=== PATIENT | female | born 1960 | race Caucasian/White ===

== ENCOUNTER 2016-09-04 12:58 | Emergency (ER) | payer BC, OTHER ==
[~2016-09-04 12:58] MED LIST: AMITRIPTYLINE25 M1 PO; AZU500 PO; CATAPRES0.1 MG PO; CIPRO500 MG PO; CLINDAMYCIN300 M1 PO; COLACE100 MG PO; FLA500 PO; KEPPRA1000 M1 PO; LAC PO; LAC30L PO; LEXAPRO10 MG PO; MAC100 PO; METHOCARBAMOL500 MG PO; METOPROLOL TART25 M1 PO; NOR10T PO; OXYCONTIN10 MG; OXYCONTIN30 M1; PERCOCET1 TA2 PO; PHENERGAN25 M2 PO; PHENERGAN25 MG RC; PRE125 PO; PRE3 PO; PREMARIN0.3 MG PO; PRI20 PO; SEN PO; ZANAFLEX4 MG PO; ZESTRIL5 MG PO; ZOFRAN ODT4 MG SL
[2016-09-04 14:15] LABS: BASOPHIL % 0.2 % (0-2); PLATELET COUNT 287 x10^3mcL (130-400)
[2016-09-04 14:20] LABS: RED CELL DISTRIBUTION WIDTH 14.6 % (11.5-14.5)
[2016-09-04 14:46] LABS: CALCIUM 9.8 mg/dL (8.5-10.1); CARBON DIOXIDE 22.9 mmol/L (21-32); CREATININE SERUM 1.1 mg/dL (0.6-1.0); POTASSIUM SERUM 3.2 mmol/L (3.5-5.1)
[2016-09-04 14:51] LABS: ALBUMIN 4.5 g/dL (3.4-5.0); BILIRUBIN TOTAL 0.8 mg/dL (0.20-1.00); MAGNESIUM 1.8 mg/dL (1.8-2.4); TOTAL PROTEIN, SERUM 7.6 g/dL (6.4-8.2)
[2016-09-04 17:02] VITALS: BP 148/107
== END 2016-09-04 17:02 | disposition home or self-care (01) ==
LOC: ED 12:58
PROVIDERS: Emergency Medicine
DX: G89.29 Other chronic pain (principal); M54.9 Dorsalgia, unspecified; R11.10 Vomiting, unspecified; I10 Essential (primary) hypertension; M41.9 Scoliosis, unspecified; Z88.5 Allergy status to narcotic agent
CPT/HCPCS: J1200; J1885; J2060; J2270; J2405; J3490; J7030; Q0092

== ENCOUNTER 2016-09-29 00:26 | Inpatient (IN) | payer BC, OTHER ==
[2016-09-29] VITALS (7 sets, daily range): BP systolic 75–198; BP diastolic 43–116
[~2016-09-29] VITALS: Ht 177.8 cm; Wt 54.4 kg
[2016-09-29 02:14] LABS: PLATELET COUNT 348 x10^3mcL (130-400); RED CELL DISTRIBUTION WIDTH 13.4 % (11.5-14.5)
[2016-09-29 02:38] LABS: BILIRUBIN TOTAL 0.79 mg/dL (0.20-1.00); CALCIUM 10.4 mg/dL (8.5-10.1); CARBON DIOXIDE 18.1 mmol/L (21-32); CREATININE SERUM 1.2 mg/dL (0.6-1.0)
[2016-09-29 02:40] LABS: ALBUMIN 5.1 g/dL (3.4-5.0); TOTAL PROTEIN, SERUM 9.1 g/dL (6.4-8.2)
[2016-09-29 02:41] LABS: POTASSIUM SERUM 2.6 mmol/L (3.5-5.1)
[2016-09-29] MEDS ORDERED: ZANAFLEX CAPSULE4 MG PO (04:13)
[2016-09-29] MEDS ORDERED: NUCYNTA100 M1 PO (04:13)
[2016-09-29] MEDS ORDERED: TIZANIDINE HCL4 MG PO (04:22)
[2016-09-29] MEDS ORDERED: CLONIDINE HCL0.1 MG PO (04:22)
[2016-09-29] MEDS ORDERED: HYDROXYZINE HYD25 MG PO (04:23)
[2016-09-29] MEDS ORDERED: OXYCONTIN20 M1 PO (04:24)
[2016-09-29] MEDS ORDERED: LORAZEPAM1 MG PO (04:36)
[2016-09-29] MEDS ORDERED: LUNESTA2 M1 PO (04:38)
[2016-09-29 05:04] LABS: T3 TOTAL 0.86 ng/mL
[2016-09-29 05:07] LABS: CHOLESTEROL/HDL RATIO 3.3
[2016-09-29 05:15] LABS: FREE T4 1.47 ng/dL (0.76-1.46); FREE THYROXINE INDEX 3.9 ug/dL (1.4-4.5); T4(THYROXINE) 10.9 ug/dL (4.7-13.3)
[2016-09-30 04:29] LABS: BASOPHIL % 0.8 % (0-2); PLATELET COUNT 213 x10^3mcL (130-400)
[2016-09-30 04:34] LABS: RED CELL DISTRIBUTION WIDTH 14.8 % (11.5-14.5)
[2016-09-30 04:47] LABS: CALCIUM 9.2 mg/dL (8.5-10.1); CARBON DIOXIDE 19.9 mmol/L (21-32); CHLORIDE SERUM 112 mmol/L (98-107); CREATININE SERUM 0.9 mg/dL (0.6-1.0); GFR1 > 60 mL/min; GLUCOSE SERUM 86 mg/dL (74-106); PHOSPHOROUS 2.7 mg/dL (2.5-4.9); POTASSIUM SERUM 3.2 mmol/L (3.5-5.1); SODIUM SERUM 146 mmol/L (136-145)
[2016-09-30 06:10] VITALS: BP 172/97
[2016-09-30 10:00] VITALS: BP 87/56
[2016-09-30 13:52] LABS: UA SPECIFIC GRAVITY 1.015 (1.005-1.035); microscopic required? YES; urine erythrocyte NEGATIVE (NEGATIVE)
[2016-09-30 14:01] LABS: AMPHETAMINE QUAL UR NONE DETECTED (NEG <=1000)
[2016-09-30 14:14] VITALS: BP 127/89
[2016-09-30 18:27] VITALS: BP 188/113
[2016-09-30 21:52] VITALS: BP 136/90
[2016-10-01 06:32] LABS: BASOPHIL % 0.4 % (0-2); PLATELET COUNT 191 x10^3mcL (130-400)
[2016-10-01 06:41] VITALS: BP 169/109
[2016-10-01 06:41] LABS: CALCIUM 9.1 mg/dL (8.5-10.1); CARBON DIOXIDE 22.4 mmol/L (21-32); CHLORIDE SERUM 106 mmol/L (98-107); CREATININE SERUM 0.8 mg/dL (0.6-1.0); GFR1 > 60 mL/min; GLUCOSE SERUM 84 mg/dL (74-106); MAGNESIUM 1.9 mg/dL (1.8-2.4); PHOSPHOROUS 2.6 mg/dL (2.5-4.9); POTASSIUM SERUM 3.9 mmol/L (3.5-5.1); SODIUM SERUM 143 mmol/L (136-145)
[2016-10-01 06:50] LABS: RED CELL DISTRIBUTION WIDTH 15.2 % (11.5-14.5)
[2016-10-01 09:13] VITALS: BP 166/99
[2016-10-01 10:55] VITALS: BP 101/56
[2016-10-01] MEDS ORDERED: LAC PO (11:39)
[2016-10-01] MEDS ORDERED: MAC100 PO (11:40)
[2016-10-01] MEDS ORDERED: LISINOPRIL2.5 MG PO (11:40)
[2016-10-01 13:03] VITALS: BP 101/56
[2016-10-01 17:02] VITALS: BP 155/98
[2016-10-01] MEDS ORDERED: REGLAN5 M1 PO (17:31)
== END 2016-10-01 19:14 | disposition home or self-care (01) | DRG 65 ==
LOC: ED 00:26 → DU 04:02 → MU 09-30 12:51
PROVIDERS: Emergency Medicine; ADMIT Family Medicine
DX: I63.9 Cerebral infarction, unspecified (principal); E44.0 Moderate protein-calorie malnutrition; N39.0 Urinary tract infection, site not specified; Z68.1 Body mass index [BMI] 19.9 or less, adult; M54.89 Other dorsalgia; E11.65 Type 2 diabetes mellitus with hyperglycemia; E87.6 Hypokalemia; G40.909 Epilepsy, unspecified, not intractable, without status epilepticus; E86.0 Dehydration; G90.9 Disorder of the autonomic nervous system, unspecified; E83.51 Hypocalcemia; I16.0 Hypertensive urgency; K52.9 Noninfective gastroenteritis and colitis, unspecified
CPT/HCPCS: 83880; 84439; J0360; J0696; J1170; J2270; J2405; J2550; J2765; J3480; J3490; J7030; Q0092; Q0162; Q0163; Q0177; Q9966

== ENCOUNTER 2016-11-06 04:14 | Emergency (ER) | payer BC, OTHER ==
[~2016-11-06 04:14] MED LIST changes: +CLONIDINE HCL0.1 MG PO; +HYDROXYZINE HYD25 MG PO; +LISINOPRIL2.5 MG PO; +LORAZEPAM1 MG PO; +LUNESTA2 M1 PO; +NUCYNTA100 M1 PO; +OXYCONTIN20 M1 PO; +REGLAN5 M1 PO; +TIZANIDINE HCL4 MG PO; +ZANAFLEX CAPSULE4 MG PO
[2016-11-06 06:31] VITALS: BP 150/90
== END 2016-11-06 06:31 | disposition home or self-care (01) ==
LOC: ED 04:14
DX: S20.211A Contusion of right front wall of thorax, initial encounter (principal); S90.31XA Contusion of right foot, initial encounter; M41.9 Scoliosis, unspecified; W17.89XA Other fall from one level to another, initial encounter; Y93.89 Activity, other specified; Y99.8 Other external cause status; Y92.89 Other specified places as the place of occurrence of the external cause; Z88.5 Allergy status to narcotic agent
CPT/HCPCS: J1885; Q0162

== ENCOUNTER 2017-03-05 04:02 | Emergency (ER) | payer BC, OTHER ==
[~2017-03-05] VITALS: Ht 177.8 cm; Wt 80.3 kg
[2017-03-05 04:12] VITALS: Ht 177.8 cm; Wt 80.3 kg
[2017-03-05 06:49] LABS: CARBON DIOXIDE 25.8 mmol/L (21-32); CHLORIDE SERUM 100 mmol/L (98-107); CREATININE SERUM 0.9 mg/dL (0.6-1.0); GFR1 > 60 mL/min; GLUCOSE SERUM 124 mg/dL (74-106); POTASSIUM SERUM 4.1 mmol/L (3.5-5.1); SODIUM SERUM 135 mmol/L (136-145)
[2017-03-05 06:53] LABS: ALBUMIN 3.9 g/dL (3.4-5.0); ALKALINE PHOSPHATASE 132 U/L (46-116); ALT/SGPT 29 U/L (14-59); AMYLASE 57 U/L (25-115); AST/SGOT 28 U/L (15-37); BILIRUBIN TOTAL 1.3 mg/dL (0.20-1.00); LIPASE 81 IU/L (73-393); TOTAL PROTEIN, SERUM 7.9 g/dL (6.4-8.2)
[2017-03-05 07:01] LABS: BASOPHIL % 0.4 % (0-2); PLATELET COUNT 186 x10^3mcL (130-400); RED CELL DISTRIBUTION WIDTH 14.4 % (11.5-14.5)
[2017-03-05 07:54] LABS: UA SPECIFIC GRAVITY <=1.005 (1.005-1.035); microscopic required? YES; urine erythrocyte NEGATIVE (NEGATIVE)
[2017-03-05 09:52] VITALS: BP 118/75
== END 2017-03-05 09:52 | disposition home or self-care (01) ==
LOC: ED 04:02
PROVIDERS: Emergency Medicine
DX: K59.00 Constipation, unspecified (principal); G89.29 Other chronic pain; F41.9 Anxiety disorder, unspecified; Z88.5 Allergy status to narcotic agent; Z88.8 Allergy status to other drugs, medicaments and biological substances
CPT/HCPCS: 83880; J7030

== ENCOUNTER 2017-06-09 06:45 | Inpatient (IN) | payer BC, OTHER ==
[2017-06-09] VITALS (7 sets, daily range): BP systolic 129–210; BP diastolic 73–120
[~2017-06-09] VITALS: Ht 177.8 cm; Wt 58.7 kg
[2017-06-09 11:48] LABS: PLATELET COUNT 312 x10^3mcL (130-400)
[2017-06-09 11:52] LABS: RED CELL DISTRIBUTION WIDTH 14.7 % (11.5-14.5)
[2017-06-09 11:53] LABS: BASOPHIL % 0 % (0-2)
[2017-06-09 11:55] LABS: CALCIUM 10.1 mg/dL (8.5-10.1); CARBON DIOXIDE 22.4 mmol/L (21-32); CREATININE SERUM 1.2 mg/dL (0.6-1.0); POTASSIUM SERUM 3.5 mmol/L (3.5-5.1)
[2017-06-09 11:59] LABS: ALBUMIN 4.8 g/dL (3.4-5.0); BILIRUBIN TOTAL 0.9 mg/dL (0.20-1.00); TOTAL PROTEIN, SERUM 8.5 g/dL (6.4-8.2)
[2017-06-09 13:17] LABS: T3 TOTAL 1.1 ng/mL
[2017-06-09 13:55] LABS: CHOLESTEROL/HDL RATIO 2.3; MAGNESIUM 1.8 mg/dL (1.8-2.4); PHOSPHOROUS 2.1 mg/dL (2.5-4.9)
[2017-06-09 14:34] LABS: FREE T4 1.48 ng/dL (0.76-1.46); FREE THYROXINE INDEX 4.2 ug/dL (1.4-4.5); T4(THYROXINE) 11.4 ug/dL (4.7-13.3)
[2017-06-10 05:35] VITALS: BP 194/109
[2017-06-10] MEDS ORDERED: ZESTRIL20 MG PO (06:38)
[2017-06-10] MEDS ORDERED: CATAPRES0.1 MG PO (06:39)
[2017-06-10 06:53] VITALS: BP 186/103
[2017-06-10 07:13] LABS: CALCIUM 9.1 mg/dL (8.5-10.1); CARBON DIOXIDE 21.2 mmol/L (21-32); CHLORIDE SERUM 104 mmol/L (98-107); GFR1 > 60 mL/min; GLUCOSE SERUM 115 mg/dL (74-106); PHOSPHOROUS 3.2 mg/dL (2.5-4.9); POTASSIUM SERUM 3.2 mmol/L (3.5-5.1); SODIUM SERUM 136 mmol/L (136-145)
[2017-06-10 08:11] LABS: UA SPECIFIC GRAVITY 1.015 (1.005-1.035); microscopic required? YES; urine erythrocyte NEGATIVE (NEGATIVE)
[2017-06-10 08:29] LABS: AMPHETAMINE QUAL UR NONE DETECTED (NEG <=1000)
[2017-06-10 09:20] LABS: PLATELET COUNT 323 x10^3mcL (130-400)
[2017-06-10 09:21] LABS: BASOPHIL % 0 % (0-2); RED CELL DISTRIBUTION WIDTH 15.6 % (11.5-14.5)
[2017-06-10 09:45] VITALS: BP 116/84
[2017-06-10 13:21] VITALS: BP 106/65
[2017-06-10 17:38] VITALS: BP 144/93
[2017-06-10 21:04] VITALS: BP 151/98
[2017-06-11 05:08] VITALS: BP 127/79
[2017-06-11 06:52] LABS: CALCIUM 8.6 mg/dL (8.5-10.1); CARBON DIOXIDE 22.4 mmol/L (21-32); CHLORIDE SERUM 107 mmol/L (98-107); CREATININE SERUM 0.9 mg/dL (0.6-1.0); GFR1 > 60 mL/min; GLUCOSE SERUM 89 mg/dL (74-106); POTASSIUM SERUM 3.6 mmol/L (3.5-5.1); SODIUM SERUM 141 mmol/L (136-145)
[2017-06-11 06:55] LABS: BASOPHIL % 0.3 % (0-2); PLATELET COUNT 191 x10^3mcL (130-400)
[2017-06-11 08:36] VITALS: BP 139/95
[2017-06-11 09:09] VITALS: BP 137/76
[2017-06-11 13:18] VITALS: BP 103/70
[2017-06-11 16:02] VITALS: BP 134/85
[2017-06-11] MEDS ORDERED: ZESTRIL20 MG PO (16:07)
[2017-06-11] MEDS ORDERED: ROBAXIN-750750 MG PO (16:11)
[2017-06-11] MEDS ORDERED: PERCOCET1 TAB PO (16:11)
[2017-06-11] MEDS ORDERED: TIZANIDINE HCL4 MG PO (17:05)
[2017-06-11 17:07] VITALS: BP 134/85
== END 2017-06-11 18:30 | disposition home or self-care (01) | DRG 551 ==
LOC: ED 06:45 → DU 11:50 → MU 06-11 16:26
PROVIDERS: Family Medicine; Specialist
DX: M54.5 Low back pain (principal); N17.0 Acute kidney failure with tubular necrosis; G93.41 Metabolic encephalopathy; G89.29 Other chronic pain; I10 Essential (primary) hypertension; E87.6 Hypokalemia; F41.1 Generalized anxiety disorder; E78.5 Hyperlipidemia, unspecified; R00.0 Tachycardia, unspecified; F43.0 Acute stress reaction; E83.39 Other disorders of phosphorus metabolism; R56.9 Unspecified convulsions; Z98.1 Arthrodesis status; Z90.710 Acquired absence of both cervix and uterus; Z88.5 Allergy status to narcotic agent; Z80.1 Family history of malignant neoplasm of trachea, bronchus and lung; Z88.8 Allergy status to other drugs, medicaments and biological substances
CPT/HCPCS: 83880; 84439; 97110-GP; 97116-GP; 97530-GP; G0480; J0360; J0696; J1200; J1885; J2270; J2405; J2550; J2765; J2800; J3490; J7030; Q0092; Q0162; Q9967

== ENCOUNTER 2017-08-12 00:14 | Emergency (ER) | payer BC, OTHER ==
[~2017-08-12] VITALS: Ht 177.8 cm; Wt 56.2 kg
[~2017-08-12 00:14] MED LIST changes: +PERCOCET1 TAB PO; +ROBAXIN-750750 MG PO; +ZESTRIL20 MG PO
[2017-08-12 00:23] VITALS: Ht 177.8 cm; Wt 56.2 kg
[2017-08-12 01:57] LABS: BASOPHIL % 0.9 % (0-2); PLATELET COUNT 291 x10^3mcL (130-400)
[2017-08-12 01:58] LABS: RED CELL DISTRIBUTION WIDTH 16.4 % (11.5-14.5)
[2017-08-12 02:15] LABS: CALCIUM 10.7 mg/dL (8.5-10.1); CARBON DIOXIDE 20.5 mmol/L (21-32); CREATININE SERUM 1.6 mg/dL (0.6-1.0); POTASSIUM SERUM 3.7 mmol/L (3.5-5.1)
[2017-08-12 02:20] LABS: BILIRUBIN TOTAL 0.69 mg/dL (0.20-1.00)
[2017-08-12 02:35] LABS: ALBUMIN 5.2 g/dL (3.4-5.0); TOTAL PROTEIN, SERUM 8.9 g/dL (6.4-8.2)
[2017-08-12 05:16] VITALS: BP 184/109
== END 2017-08-12 05:16 | disposition home or self-care (01) ==
LOC: ED 00:14
PROVIDERS: Emergency Medicine
DX: R11.10 Vomiting, unspecified (principal); Z90.710 Acquired absence of both cervix and uterus; Z88.6 Allergy status to analgesic agent
CPT/HCPCS: J1885; J2405; J7030

== ENCOUNTER 2018-01-03 03:38 | Inpatient (IN) | payer BC, OTHER ==
[~2018-01-03] VITALS: Ht 172.7 cm; Wt 57.0 kg
[2018-01-03 03:44] VITALS: Ht 172.7 cm; Wt 57.0 kg
[2018-01-03 05:09] LABS: BASOPHIL % 0.2 % (0-2); PLATELET COUNT 321 x10^3mcL (130-400); RED CELL DISTRIBUTION WIDTH 14.5 % (11.5-14.5)
[2018-01-03 05:10] LABS: CALCIUM 9.8 mg/dL (8.5-10.1); CARBON DIOXIDE 19.7 mmol/L (21-32); CHLORIDE SERUM 101 mmol/L (98-107); CREATININE SERUM 1.2 mg/dL (0.6-1.0); GFR1 50 mL/min; GLUCOSE SERUM 147 mg/dL (74-106); POTASSIUM SERUM 3.2 mmol/L (3.5-5.1); SODIUM SERUM 137 mmol/L (136-145)
[2018-01-03 05:26] LABS: ALBUMIN 4.8 g/dL (3.4-5.0); ALKALINE PHOSPHATASE 115 U/L (46-116); ALT/SGPT 23 U/L (14-59); AST/SGOT 17 U/L (15-37); BILIRUBIN TOTAL 0.8 mg/dL (0.20-1.00); FREE T4 1.28 ng/dL (0.76-1.46); TOTAL PROTEIN, SERUM 8.6 g/dL (6.4-8.2)
[2018-01-03 06:18] LABS: microscopic required? NO
[2018-01-03] MEDS ORDERED: PERCOCET1 TA5 PO (06:46)
[2018-01-03] MEDS ORDERED: ZANAFLEX CAPSULE4 MG PO (06:47)
[2018-01-03 07:24] LABS: MAGNESIUM 1.9 mg/dL (1.8-2.4); PHOSPHOROUS 3.6 mg/dL (2.5-4.9)
[2018-01-03 07:25] LABS: CHOLESTEROL/HDL RATIO 2.6
[2018-01-03 07:39] LABS: FREE T4 1.29 ng/dL (0.76-1.46); FREE THYROXINE INDEX 3.3 ug/dL (1.4-4.5); T4(THYROXINE) 8.9 ug/dL (4.7-13.3)
[2018-01-03 07:49] LABS: UA SPECIFIC GRAVITY 1.015 (1.005-1.035); urine erythrocyte NEGATIVE (NEGATIVE)
[2018-01-03 08:00] LABS: AMPHETAMINE QUAL UR NONE DETECTED (See below)
[2018-01-03 08:14] LABS: T3 TOTAL 1.03 ng/mL
[2018-01-03 10:33] VITALS: BP 165/83
[2018-01-03 13:44] VITALS: BP 174/105
[2018-01-03 16:09] VITALS: BP 146/101
[2018-01-03 20:35] VITALS: BP 111/80
[2018-01-04 05:38] VITALS: BP 118/112
[2018-01-04 06:21] LABS: BASOPHIL % 0.1 % (0-2); PLATELET COUNT 299 x10^3mcL (130-400)
[2018-01-04 06:49] LABS: CALCIUM 9.9 mg/dL (8.5-10.1); CARBON DIOXIDE 23.3 mmol/L (21-32); CHLORIDE SERUM 104 mmol/L (98-107); GFR1 > 60 mL/min; GLUCOSE SERUM 115 mg/dL (74-106); PHOSPHOROUS 2.5 mg/dL (2.5-4.9); POTASSIUM SERUM 3.7 mmol/L (3.5-5.1); SODIUM SERUM 140 mmol/L (136-145)
[2018-01-04 06:50] LABS: RED CELL DISTRIBUTION WIDTH 14.7 % (11.5-14.5)
[2018-01-04 09:23] VITALS: BP 185/114
[2018-01-04 13:17] VITALS: BP 112/73
[2018-01-04 17:13] VITALS: BP 102/57
[2018-01-04 20:28] VITALS: BP 104/59
[2018-01-04 20:38] VITALS: BP 96/62
[2018-01-05 06:12] VITALS: BP 175/99
[2018-01-05 06:56] LABS: BASOPHIL % 0.4 % (0-2); PLATELET COUNT 222 x10^3mcL (130-400)
[2018-01-05 06:59] LABS: RED CELL DISTRIBUTION WIDTH 14.8 % (11.5-14.5)
[2018-01-05 07:23] LABS: CALCIUM 9.6 mg/dL (8.5-10.1); CHLORIDE SERUM 107 mmol/L (98-107); CREATININE SERUM 0.8 mg/dL (0.6-1.0); GFR1 > 60 mL/min; GLUCOSE SERUM 97 mg/dL (74-106); MAGNESIUM 2.2 mg/dL (1.8-2.4); PHOSPHOROUS 2.4 mg/dL (2.5-4.9); POTASSIUM SERUM 3.4 mmol/L (3.5-5.1); SODIUM SERUM 140 mmol/L (136-145)
[2018-01-05 09:20] VITALS: BP 171/82
[2018-01-05 13:13] VITALS: BP 163/98
[2018-01-05 17:10] VITALS: BP 85/61
[2018-01-05 18:23] VITALS: BP 98/56
[2018-01-05 20:56] VITALS: BP 100/50
[2018-01-06 05:53] VITALS: BP 143/92
[2018-01-06 06:30] LABS: BASOPHIL % 0.6 % (0-2); PLATELET COUNT 197 x10^3mcL (130-400)
[2018-01-06 06:44] LABS: CALCIUM 8.6 mg/dL (8.5-10.1); CARBON DIOXIDE 28.3 mmol/L (21-32); CHLORIDE SERUM 107 mmol/L (98-107); CREATININE SERUM 0.9 mg/dL (0.6-1.0); GFR1 > 60 mL/min; GLUCOSE SERUM 84 mg/dL (74-106); PHOSPHOROUS 3.9 mg/dL (2.5-4.9); POTASSIUM SERUM 4.3 mmol/L (3.5-5.1); SODIUM SERUM 143 mmol/L (136-145)
[2018-01-06 07:06] LABS: RED CELL DISTRIBUTION WIDTH 14.6 % (11.5-14.5)
[2018-01-06 10:00] VITALS: BP 125/73
[2018-01-06 13:30] VITALS: BP 119/79
[2018-01-06 17:10] VITALS: BP 119/79
== END 2018-01-06 18:00 | disposition home or self-care (01) | DRG 438 ==
LOC: ED 03:38 → DU 06:01
PROVIDERS: Emergency Medicine; Family Medicine; Internal Medicine
DX: K85.90 Acute pancreatitis without necrosis or infection, unspecified (principal); N17.0 Acute kidney failure with tubular necrosis; R65.10 Systemic inflammatory response syndrome (SIRS) of non-infectious origin without acute organ dysfunction; F11.20 Opioid dependence, uncomplicated; K86.1 Other chronic pancreatitis; E78.5 Hyperlipidemia, unspecified; G89.29 Other chronic pain; M54.9 Dorsalgia, unspecified; Z88.5 Allergy status to narcotic agent; Z90.710 Acquired absence of both cervix and uterus; R56.9 Unspecified convulsions; F41.9 Anxiety disorder, unspecified; R00.0 Tachycardia, unspecified; Z79.899 Other long term (current) drug therapy; Z80.1 Family history of malignant neoplasm of trachea, bronchus and lung; E87.6 Hypokalemia; Z91.19 Patient's noncompliance with other medical treatment and regimen; K59.00 Constipation, unspecified
CPT/HCPCS: 36600; 83880; 84439; 94150; G0480; J0696; J2060; J2270; J2405; J2543; J2550; J2765; J3010; J3490; J7030

== ENCOUNTER 2018-06-29 02:08 | Inpatient (IN) | payer BC, OTHER ==
[2018-06-29] VITALS (9 sets, daily range): BP systolic 88–214; BP diastolic 48–107; Ht 172.7 cm; Wt 59.0 kg
[~2018-06-29] VITALS: Ht 172.7 cm; Wt 59.0 kg
[~2018-06-29 02:08] MED LIST changes: +PERCOCET1 TA5 PO
--- NOTE | 2018-06-29 02:45 | NUR ---
PT C/O OF NAUSEA AND VOMITING SINCE 1600. PT HAS HAD NO RELIEF FROM VOMITING. PT IS ALSO HAVING SOME CHEST PAIN THAT IT NON RADIATING. PT STS THAT SHE THINK THE PAIN IS FROM HER VOMITING. PT IS CURRENTLY VOMITING X6. DR. CARDOSO INFORMED. BP 202/121 HR 102. PT HAS HX OF SCOLIOSIS AND IS C/O GENERAL UPPER BACK PAIN. PT EMISES IS YELLOW 4OZ IN BAG. DR. CARDOSO AT BEDSIDE FOR MSE. PT IS ALERT AND ORIENTED, SPEAKING IN CLEAR AND FULL SENTENCS. WILL CONTINUE TO MONITOR.
--- NOTE | 2018-06-29 03:06 | NUR ---
MEDICATED ORDERED. PT HAS STOPPED VOMITING. PT STS SHE IS FEELING BETTER. RESP E/U. WILL CONTINUE TO MONITOR.
--- NOTE | 2018-06-29 04:05 | NUR ---
PT STARTED VOMITING GREEN EMESIS. PT SHIVERING STATING SHE IS COLD AND THAT HER PAIN IS INCREASING AGAIN 10/23. BP 213/114. HR 83. DR. JANAE HARRISON. WILL CONTINUE TO MONITOR.
[2018-06-29 04:40] LABS: BASOPHIL % 0.4 % (0-2); PLATELET COUNT 280 x10^3mcL (130-400)
[2018-06-29 04:42] LABS: RED CELL DISTRIBUTION WIDTH 15.8 % (11.5-14.5)
[2018-06-29 04:49] LABS: CALCIUM 9.5 mg/dL (8.5-10.1); CARBON DIOXIDE 23.9 mmol/L (21-32); CREATININE SERUM 1.1 mg/dL (0.6-1.0); POTASSIUM SERUM 3.8 mmol/L (3.5-5.1)
[2018-06-29 04:54] LABS: ALBUMIN 4.9 g/dL (3.4-5.0); BILIRUBIN TOTAL 0.67 mg/dL (0.20-1.00)
[2018-06-29 04:55] LABS: TOTAL PROTEIN, SERUM 8.6 g/dL (6.4-8.2)
--- NOTE | 2018-06-29 05:02 | NUR ---
MEDICATED ORDERED. PT CONTINUING TO VOMIT. DR. CARDOSO MADE AWARE. PT STS SHE HAS SOME RELIEF BUT STILL IN A 6/10 PAIN. WILL CONTINUE TO MONITOR.
[2018-06-29] MEDS ORDERED: KEPPRA1000 M1 PO (05:31)
--- NOTE | 2018-06-29 05:45 | NUR ---
PT IS CONTINUING TO VOMIT. DR. CARDOSO MADE AWARE. PT STS THAT THIS HAPPENS TO HER ALL THE TIME WHEN SHE IS IN PAIN. PT STS THAT IT TAKES A FEW DAYS FOR IT STOP WITH PAIN MANAGMENT. VSS. WILL CONTINUE TO MONITOR. RESP E/U. PT A&OX4.
[2018-06-29 06:01] LABS: MAGNESIUM 1.9 mg/dL (1.8-2.4); PHOSPHOROUS 2.8 mg/dL (2.5-4.9)
[2018-06-29 06:02] LABS: CHOLESTEROL/HDL RATIO 2.5
--- NOTE | 2018-06-29 06:08 | NUR ---
REPORT GIVEN TO ALLISON TO ASSUME CARE OF PT.
--- NOTE | 2018-06-29 06:48 | NUR ---
RECEIVED PT FROM ER VIA [facility]. PT ADMITTED FOR INTACTABLE BACK PAIN WITH N/V. PT IS VOMITTING YELLOW BILE. VITAL SIGNS TAKEN, BP ELEVATED AT 214/106, AND TEMP 100.3. PT STATES BP IS ELEVATED WHEN BACK PAIN IS EXTREMLY PAINFUL. BACK PAIN IS 10/10. HISTORY OBTAINED FROM PT. ORIENTED PT TO ROOM AND SURROUDINGS. INSTRUCTED PT TO USE CALL LIGHT FOR ASSISTANCE, WHICH IS WITHIN REACH. BED IS IN LOWEST POSITION. WILL GIVEN PAIN MEDICATION SOON IT IS AVAILABLE.
[2018-06-29 07:33] LABS: UA SPECIFIC GRAVITY 1.025 (1.005-1.035); microscopic required? YES; urine erythrocyte NEGATIVE (NEGATIVE)
[2018-06-29 07:42] LABS: AMPHETAMINE QUAL UR NONE DETECTED (See below)
--- NOTE | 2018-06-29 07:46 | NUR ---
RECEIVED PT FROM MEHNAZ RN. PT BP 193/89, GIVEN BP MED BY MEHNAZ RN, TRENDING DOWN. COMPLAINT OF BACK PAIN, 12/23, CONTINUOUS, GIVEN IV PAIN MED, SEE MAR. AA/OX4, DENIES LANZA. COMPLAINT OF N/V. NO CHEST PAIN. NO SOB ON ROOM AIR. IV WNL TO LEFT FOOT 20 GAUGE. NO REDNESS, NO SWELLING, NO INFILTRATION. PATENT. PT INSTRUCTED TO USE CALL LIGHT TO CALL FOR ASSISTANCE PRN. VERBALIZED UNDERSTANDING. BED IN LOW POSITION. CALL LIGHT WITHIN REACH. WILL CONT. TO MONITOR.
--- NOTE | 2018-06-29 08:10 | NUR ---
DR. COUCH AWARE OF BP 193/89, AWAITING FURTHER ORDERS. WILL CONT. TO MONITOR.
--- NOTE | 2018-06-29 10:13 | NUR ---
LATE ENTRY: BP CONTINUES TO BE ELEVATED, 196/124, HR 119. DR. COUCH AWARE. RECEIVED NEW ORDER FOR IV BP MED. SEE MAY. SINUS TACH ON TELE, HR 119 PRIOR TO HYDRALAZINE 20MG IVP, PT COMPLAINT OF N/V. MILD DIZZINESS. DENIES LANZA. COMPLAINT OF CHEST PAIN LEFT CHEST, ACUTE, SHARP, RADIATING TO LEFT RIBS, REPRODUCIBLE. RATES 5/10. NO SOB ON ROOM AIR. PHYSICIANS AT BEDSIDE. DR. COUCH AWARE OF BP AND CHEST PAIN. NEW ORDERS TO FOLLOW. WILL CONTINUE TO MONITOR.
--- NOTE | 2018-06-29 10:33 | NUR ---
GIVEN IV PAIN MED FOR BACK/CHEST PAIN. RATES 8/10. CONTINUOUS. PHYSICIANS AWARE. FREIGHT HANDLER AT BEDSIDE. PT NAUSEOUS. ZOFRAN GIVEN, PT CONTINUES TO BE NAUSEOUS, DR. COUCH AWARE. NO FURTHER ORDERS AT THIS TIME. BP DECREASING 161/99. WILL CONTINUE TO MONITOR CLOSELY
--- NOTE | 2018-06-29 11:02 | NUR ---
HR ELEVATED [address] COUCH AWARE. SINUS TACH ON TELE. BP 164/101. IV METOPROLOL GIVEN PER PHYSICIAN ORDER. IV WNL TO LEFT FOOT, PATENT AND FLUSHES WELL. WILL REMAIN WITH PATIENT AND WILL CONTINUE TO MONITOR CLOSELY.
--- NOTE | 2018-06-29 11:20 | NUR ---
HR 110, BP 158/104 (121), DECREASING. REPORTS PAIN IN BACK DECREASED, RATES 4/10, TOLERABLE AT THIS TIME. DENIES CHEST PAIN AT THIS TIME. DENIES N/V. NO LANZA. NO DIZZINESS. CALM/COOPERATIVE. IV WNL TO LEFT FOOT, PATENT AND FLUSHES WELL. IV FLUIDS FLOWING. BED IN LOW POSITION. CALL LIGHT WITHIN REACH. WILL CONT. TO MONITOR.
--- NOTE | 2018-06-29 12:20 | NUR ---
PT C/O N/V, MEDICATED PER EMAR.
--- NOTE | 2018-06-29 12:21 | NUR ---
PT TAKEN FOR CT SCAN, COMPLAINT OF NAUSEA, GIVEN NAUSEA MED, SEE MAR. NO S/S OF ACUTE DISTRESS. NO SOB ON ROOM AIR. NO S/S OF ACUTE DISTRESS. TAKEN BY FABIO
--- NOTE | 2018-06-29 13:39 | NUR ---
PT COMPLAINT OF PAIN TO BACK, RATES 8/10, CONTINUOUS. ACHING, WORSE WITH MOVEMEMENT. GIVEN IV PAIN MED, SEE MAR. NO S/S OF ACUTE DISTRESS. NO SOB ON ROOM AIR. NO CHEST PAIN. NO N/V. NO LANZA. NO DIZZINESS. SPEECH CLEAR. AA/OX4. BED IN LOW POSITION. CALL LIGHT WITHIN REACH. WILL CONT. TO MONITOR.
--- NOTE | 2018-06-29 15:01 | NUR ---
PHYSICAL THERAPY NOTE AM/ PM REFUSED PHYSICAL THERAPY EVAL AND TREATMENT AT THIS TIME SECONDARY TO INCREASE PAIN 4 TO 8/ 10 (PREMED) AND INCREASE OVERALL VOMITTING. PATIENT WAS CLEARED BY NURSING FOR ASSESSMENT. PATIENT EDUCATED BENEFITS OF TREATMENT TO INCREASE OVERALL FUNCTIONAL MOBILITY. UNABLE TO ENCOURAGE. WILL RECOMMEND ATTEMPT TO EVAL TREATMENT ON NEXT VISIT. NURSING CONFIRMED AND AWARE.
--- NOTE | 2018-06-29 16:50 | NUR ---
BP LOW 69/31 DR. EVERETT AWARE, PT AA/OX4. FOLLOWS COMPLEX COMMANDS, DROWSY BUT EASILY AROUSABLE. DENIES PAIN AT THIS TIME. DENIES CHEST PAIN. COMPLAINT OF MILD LANZA. NO N/V. NO ABD. PAIN. HR 98. TEMP 99.0F, RR 16. RECEIVED ORDER FOR 1L BOLUS NS. IV BOLUS RUNNING. IV WNL TO LEFT FOOT, PATENT AND FLUSHES WELL. BED IN LOW POSITION. CALL LIGHT WITHIN REACH. WILL CONT. TO MONITOR.
--- NOTE | 2018-06-29 17:58 | NUR ---
BOLUS COMPLETED. BP 91/61, HR 95. NO SOB ON ROOM AIR. NO CHEST PAIN. CALM/COOPERATIVE. AA/OX4. DR. EVERETT AWARE. IV WNL TO LEFT FOOT, IV FLUIDS FLOWING. NO CHEST PAIN. NO LANZA. NO N/V. BED IN LOW POSITION. CALL LIGHT WITHIN REACH. WILL CONTINUE TO MONITOR.
--- NOTE | 2018-06-29 18:30 | NUR ---
PT LAYING IN BED. VS STABLE. NO S/S OF ACUTE DISTRESS. NO SOB ON ROOM AIR. NO COMPLAINT OF CHEST PAIN. NO COMPLAINT OF PAIN. IV WNL TO RIGHT FOOT, IV FLUIDS FLOWING. NO CHILLS. NO FEVER. NO N/V. CALM/COOPERATIVE. AA/OX4. BED IN LOW POSITION. CALL LIGHT WITHIN REACH. WILL ENDORSE TO ONCOMING SHIFT.
--- NOTE | 2018-06-29 19:35 | NUR ---
RECEIVED PT FROM PREVIOUS SHIFT NURSE. PT AOX4. DENIES LANZA/DIZZINESS. DENIES CP/PRESSURE AT THIS TIME. RR EVEN AND UNLABORED, IN NO ACUTE DISTRESS, ON RA. IV TO L. FOOT, INTACT AND PATENT. BED IN LOWEST POSITION. CALL LIGHT WITHIN REACH. WILL CONTINUE TO MONITOR.
--- NOTE | 2018-06-29 21:03 | NUR ---
PT C/O PAIN IN CHEST AND BACK 12/23, MEDICATED PER EMAR.
--- NOTE | 2018-06-29 21:11 | NUR ---
PT C/O FEELING ANXIOUS, MEDICATED PER EMAR.
--- NOTE | 2018-06-30 00:14 | NUR ---
PT C/O 12/23 BACK/CP. MEDICATED PER EMAR.
--- NOTE | 2018-06-30 00:19 | NUR ---
PT C/O PAIN AND NAUSEA. MEDICATED PER EMAR.
--- NOTE | 2018-06-30 01:21 | NUR ---
PT C/O CONTINUED PAIN, MEDICATED PER EMAR.
--- NOTE | 2018-06-30 02:19 | NUR ---
HR SUSTAINING IN 130S, PT IN NO ACUTE DISTRESS, MEDICATED PER EMAR FOR PAIN.
--- NOTE | 2018-06-30 03:20 | NUR ---
PT C/O ANXIETY AND PAIN. MEDICATED PER EMAR.
[2018-06-30 05:00] VITALS: BP 72/41
--- NOTE | 2018-06-30 05:04 | NUR ---
HR NOW IN THE 80S. PT RESTING IN BED. RR EVEN AND UNLABORED. NO ACUTE DISTRESS NOTED.
--- NOTE | 2018-06-30 05:32 | NUR ---
HEATING PAD APPLIED TO BACK.
--- NOTE | 2018-06-30 06:05 | NUR ---
PT BP 72/41 MAP 51, DR. COUCH NOTIFIED. AWAITING FURTHER ORDERS.
[2018-06-30 06:28] LABS: BASOPHIL % 0.4 % (0-2); PLATELET COUNT 199 x10^3mcL (130-400)
--- NOTE | 2018-06-30 06:35 | NUR ---
BP NOW 111/70 MAP 92.
[2018-06-30 06:37] VITALS: BP 111/70
[2018-06-30 06:46] LABS: CALCIUM 8.1 mg/dL (8.5-10.1); CARBON DIOXIDE 25.1 mmol/L (21-32); CHLORIDE SERUM 109 mmol/L (98-107); GFR1 > 60 mL/min; GLUCOSE SERUM 108 mg/dL (74-106); POTASSIUM SERUM 4.3 mmol/L (3.5-5.1); SODIUM SERUM 143 mmol/L (136-145)
--- NOTE | 2018-06-30 07:05 | NUR ---
UNABLE TO ESTABLISH IV ACCESS AT THIS TIME. DR. COUCH NOTIFIED. WILL ENDORSE TO ONCOMING SHIFT NURSE.
[2018-06-30 07:21] LABS: RED CELL DISTRIBUTION WIDTH 16.4 % (11.5-14.5)
[2018-06-30 09:51] VITALS: BP 96/64
--- NOTE | 2018-06-30 11:04 | NUR ---
AT 0720 - RECEIVED PATIENT FROM NIGHT NURSE. AWAKE, ALERT AND ORIENTED. MONITOR SHOWING SINUS RHYTHM; RATE 90'S. NO IV ACCESS. AT 0830 - IV STARTED IN L FOOT. INFUSION OF NS RESUMED AT 125 ML/HR. AT 0840 - MEDICATED WITH IV MORPHINE FOR BACK PAIN IN LEFT THORACIC AREA. AT 0930 - UP WITH PHYSICAL THERAPY.
[2018-06-30 13:15] VITALS: BP 117/69
--- NOTE | 2018-06-30 15:39 | NUR ---
AT 1200 - PATIENT REQUESTING PAIN. MEDICATION FOR PAIN IN BACK. OFFERED PATIENT TORADOL OR PERCOCET BUT SHE WANTED TO HAVE MORPHINE - SAYS "IT WORKS BEST". AT 1400 - GIVEN ZANAFLEX WELL ATIVAN FOR ANXIETY. PATIENT RESTED QQUIETLY. CONTINEUS TO USE K-PAD FOR ADDITIONAL PAIN RELIEF. AT 1530 - PATIENT REPORTS HAVING HAD 2 BM TODAY. DOES NOT WANT ANY MORE COLACE. NO NAUSEA OR VOMITING TODAY BUT REPORTS THAT PAIN IS MODERATELY SEVERE. NOW GIVEN MORPHINE EPR EMAR.
[2018-06-30 17:47] VITALS: BP 105/63
--- NOTE | 2018-06-30 19:10 | NUR ---
AWAKE, ALERT AND ORIENTED. MONITOR SHOWING SINUS TACH; RATE 104/ BP WNL. AFEBRILE. C/O PERSISTANT BACK PAIN AND RECEING MORPHINE IV PER EMAR. K-PAD IN PALCE. POSITIONED WITH PILLOWS FOR COMFORT. IV INFUSING NS AT 125ML/HR. AMBULATES TO BATHROOM FOR TOILET NEEDS. CARE ENDORSE TO NIGHT NURSE.
--- NOTE | 2018-06-30 19:12 | NUR ---
PT RECIEVED FROM THE DAY SHIFT RN, PT IS ALERT AND ORIENTED X4, CALM AND COOPERATIVE WITH CARE, NO ACUTE DISTRESS NOTED. PT HAS COMPLAINT OF BACK PAIN AND STATES PAIN IS 6/10. PT WAS MEDICATED EARLIER WITH MORPHINE, WILL CONTINUE TO MONITOR PAIN. SAFETY AND COMFORT MEASURES MAINTAINED, BED IN LOWEST POSITION, CALL LIGHT WITHIN REACH, WILL CONTINUE TO MONITOR AT THIS TIME.
[2018-06-30 21:13] VITALS: BP 105/57
[2018-07-01] VITALS (7 sets, daily range): BP systolic 73–199; BP diastolic 40–107
--- NOTE | 2018-07-01 01:12 | NUR ---
PT IS RESTING IN BED WITH EYES CLOSED AT THIS TIME. NO ACUTE DISTRESS NOTED. PT HAD COMPLAINTS OF BACK PAIN EARLIER. IVP MORPHINE GIVEN (SEE MAR). IV INFUSING AND INTACT AT THIS TIME. SAFETY AND COMFORT MEASURES MAINTAINED, BED IN LOWEST POSITION, CALL LIGHT WITHIN REACH. WILL CONTINUE TO MONITOR AT THIS TIME.
--- NOTE | 2018-07-01 02:23 | NUR ---
PT IS RESTING IN BED WITH EYES CLOSED AT THIS TIME. NO ACUTE DISTRESS NOTED. PT HAS BEEN CALM AND COOPERATIVE WITH CARE. SAFETY AND COMFORT MEASURES MAINTAINED, BED IN LOWEST POSITION, CALL LIGHT WITHIN REACH, WILL CONTINUE TO MONITOR AT THIS TIME.
--- NOTE | 2018-07-01 03:35 | NUR ---
PT COMPLAINED OF BACK PAIN. IVP MORPHINE GIVEN.
--- NOTE | 2018-07-01 03:42 | NUR ---
PT CALLED NURSES STATION AND COMPLAINED OF FEELING ITCHINESS AT THE SITE. WHEN ASSESSING THE IV SITE ON THE LEFT FOOT. REDNESS AND SWELLING WAS NOTED. STOPPED THE IV INFUSION, IV CATHETER WAS INTACT. PT DENIED SOB, FEVER, CHILLS, OR DIFFICULTY BREATHING. WARMTH AND ERYTHEMA AND SWELLING NOTED. NEW IV SITE WILL BE STARTED AND WILL CONTINUE TO MONITOR THE PATIENT AT THIS TIME.
--- NOTE | 2018-07-01 05:35 | NUR ---
PT HAS RESTED IN INTERMITTENT INTERVAL THROUGHOUT THE SHIFT. PT HAS BEEN CALM AND COOPERATIVE WITH CARE. PT STILL COMPLAINS OF BACK PAIN STATING PAIN IS FROM 5-8/10 AND IS CONSTANT PAIN. PT STATES MORPHINE HELPS IMPROVE THE PAIN.PT HAS NO OTHER COMPLAINTS AT THIS TIME. LEFT LOWER EXTREMITY IV SHOWED SIGNS OF PHLEBITIS AND WAS D/C AND NEW IV SITE STARTED ON THE RLE. IV IS INTACT AND INFUSING AT THIS TIME. SAFETY AND COMFORT MEASURES MAINTAINED, BED IN LOWEST POSITION, CALL LIGHT WITHIN REACH, WILL ENDORSE CONTINUITY OF CARE TO THE ONCOMING RN.
--- NOTE | 2018-07-01 05:52 | NUR ---
PT STATES SHE FELT NAUSEOUS, IVP PHENERGAN GIVEN.
--- NOTE | 2018-07-01 06:08 | NUR ---
PT BP 199/107 MAP 134, HR 111, IV HYDRALAZINE GIVEN, WILL REASSESS BP IN 15 MINUTES.
--- NOTE | 2018-07-01 06:09 | NUR ---
PT IS TEARFUL AND STATING PAIN IS 10/10 IN THE BACK. PT IS NOT DUE FOR PRN PAIN MEDICATION YET. WILL CONTINUE TO MONITOR AT THIS TIME.
[2018-07-01 07:33] LABS: CALCIUM 8.5 mg/dL (8.5-10.1); CARBON DIOXIDE 22.3 mmol/L (21-32); CHLORIDE SERUM 107 mmol/L (98-107); CREATININE SERUM 0.9 mg/dL (0.6-1.0); GFR1 > 60 mL/min; GLUCOSE SERUM 138 mg/dL (74-106); POTASSIUM SERUM 3.5 mmol/L (3.5-5.1); SODIUM SERUM 140 mmol/L (136-145)
[2018-07-01 07:46] LABS: BASOPHIL % 0.5 % (0-2); PLATELET COUNT 298 x10^3mcL (130-400)
[2018-07-01 07:47] LABS: RED CELL DISTRIBUTION WIDTH 16.2 % (11.5-14.5)
--- NOTE | 2018-07-01 07:58 | NUR ---
AT 0730 - RECEIVED PATIENT FROM NIGHT NURSE. AWAKE, ALERT AND ORIENTED. C/O NAUSEA. WAS MEDICATED WITH PHENERGAN EARLIER. BACK PAIN APPEARS UNDER CONTROL AT PRESENT. IV INFUSING NS AT 125 ML/HR. MONITOR SHOWING SINUS TACH; RATE 90-110. AT 0750 - RECEIVED CALL FROM LAB WITH WBC OF 15.9
--- NOTE | 2018-07-01 08:50 | NUR ---
PATIENT CONTINUES TO HAVE NAUSEA AND VOMITING. CALLED DR COUCH. SHE WILL PLACE ANOTHER ANTIEMETIC ORDER. DOCTOR ALSO MADE AWARE OF ELEVATED WBC OF 15.9.
--- NOTE | 2018-07-01 09:13 | NUR ---
PHYSICAL THERAPY: ATTEMPTED FOR SCHEDULED TREATMENT SESSION. PATIENT REFUSED DUE TO VOMITING AND FEELING NAUSEOUS AT THIS TIME. RN PRESENT.
--- NOTE | 2018-07-01 09:14 | NUR ---
NOW MEDICATED WITH COMPAZINE PER EMAR. PATIENT CONTINUING TO VOMIT CLEAR AND WHITE LIQUID.
--- NOTE | 2018-07-01 11:06 | NUR ---
AT 1035 - SEEN BY DR REYNA AND DR COUCH. PATIENT TO STAY IN HOSPITAL TODAY FOR CONTINUING PAIN MANAGEMENT. DR COUCH AWARE OF PATIENT'S TACHYCARDIA - HR 140'S. AT
--- NOTE | 2018-07-01 12:08 | NUR ---
PATIENT SLEPT FOR A SHORT TIME AFTER LAST ADMINSITRATION OF MORPHINE. NO FURTHER VOMITING.
--- NOTE | 2018-07-01 14:45 | NUR ---
PATIENT ABLE TO TOLERATE SMALL AMOUNTS OF FLUIDS PO. NO VOMITING THIS PM. STIL C/O BACK PAIN AND REQUESTING MORPHINE Q 3 H.
--- NOTE | 2018-07-01 16:46 | NUR ---
PHYSICAL THERAPY DAILY NOTES CO-SIGN All documentation done by the Gas Meter Repairer for 07/01/18 has been reviewed. I agree with the documentation. Reviewed/Co-Signed by: Guanaco Lindsay PT Documentation Done by:GIGI MCKEON PTA
--- NOTE | 2018-07-01 17:46 | NUR ---
AT 1700 - PATIENT HAS BEEN SLEEPING FOR PAST 2 HOURS. NOW REQUESTING IV MORPHINE. PAITENT CURRENTLY HYPOTENSIVE WITH BP 70'S/40'S. MONITOR SHOWING BRADYCARDIA; RATE 55-60. PATIENT INFORMED THAT BP IS TOO LOW TO RECEIVE IV MORPHINE. SPOKE WITH DR COUCH AND INFORMED HER OF CHANGE IN VITAL SIGNS FROM EARLIER IN THE DAY. NO NEW TREATMENT REQUIRED AT THIS TIME. IV INFUSING NS AT 125 ML/HR. CONTINUING TO MONITOR PATIENT.
--- NOTE | 2018-07-01 18:43 | NUR ---
PATIENT WAS ABLE TO TOLERATE SOME FOOD FOR DINNER. NO FURTHER VOMITING OR C/O NAUSEA. AMBULATED TO BATHROOM AND BACK TO BED. REMAINS HYPOTENSIVE SO NO FURTHER MORPHINE ADMINISTERED. PATIENT DECLINED TORADOL OR ZANAFLEX. WILL ENDORSE CARE TO NIGHT NURSE.
--- NOTE | 2018-07-01 19:30 | NUR ---
RECIEVED PATIENT AT START OF SHIFT A/O X4, SEIZURE PRECAUTIONS IN PLACE. LIBBY DENIES NAUSEA, BUT REPORTS 7/10 PAIN TO HER LOWER BACK ON THE RIGHT SIDE. PATIENT LAST MEDICATED WITH MORPHINE AT 1230 TODAY, HOWEVER BP IS 78/47 (55). PATIENT REPORTS FEELING WEAK. DR. COUCH IS AWARE PER REPORT OF RADHA MOSS. IV INFUSING NS 125 TO RIGHT FOOT, NO ERYTHEMA OR INFILTRATION NOTED. PATIENT ON TELE NUMBER 27 NSR 76 BPM. NO EDEMA NOTED. LUNGS CTAB, NO SOB NOTED ON RA. KPAD IN PLACE TO LOWER BACK FOR PAIN. BED LOCKED AND IN LOWEST POSITION. CALL LIGHT AND BEDSIDE TABLE WITHIN REACH. WILL CONTINUE TO MONITOR.
--- NOTE | 2018-07-01 20:37 | NUR ---
PATIENT MEDICATED WITH TORADOL PER EMAR FOR 7/10 PAIN TO HER BACK, AND BP OF 78/47.
--- NOTE | 2018-07-01 21:30 | NUR ---
MEDICATED WITH MORPHINE PER EMAR PATIENT REPORTED PERSISTENT 7/10 PAIN TO HER BACK AND BP IMPROVED TO 120'S (SEE VITALS).
--- NOTE | 2018-07-02 03:45 | NUR ---
PATIENT'S BP IS NOW 84/50, MAP OF 60. HEART RATE IS 55 SINUS CHELLE. PATIENT REPORTS 8/10 PAIN TO BACK, AND NEW LANZA. PATIENT MEDICATED WITH PERCOCET AND TYLENOL PER EMAR.
--- NOTE | 2018-07-02 06:00 | NUR ---
PATIENTS BP IMPROVED TO 111/67, HR 72. PATIENT MEDICATED WITH MORPHINE PER EMAR FOR BACK PAIN RATED 8/10.
[2018-07-02 06:04] VITALS: BP 111/67
--- NOTE | 2018-07-02 06:36 | NUR ---
PATIENT GIVEN PEPCID ONE TIME ORDER FOR HEART BURN.
--- NOTE | 2018-07-02 06:55 | NUR ---
NO FURTHER SIGNIFICANT EVENTS THIS SHIFT. WILL ENDORSE CARE TO MORNING NURSE.
[2018-07-02 07:19] LABS: CALCIUM 8.1 mg/dL (8.5-10.1); CHLORIDE SERUM 108 mmol/L (98-107); CREATININE SERUM 0.8 mg/dL (0.6-1.0); GFR1 > 60 mL/min; GLUCOSE SERUM 87 mg/dL (74-106); POTASSIUM SERUM 3.9 mmol/L (3.5-5.1); SODIUM SERUM 142 mmol/L (136-145)
--- NOTE | 2018-07-02 07:33 | NUR ---
RECEIVED PT RESTING IN BED. NO ACUTE DISTRESS. SEIZURE PRECAUTIONS. AAOX4. BREATHING EVEN AND UNLABORED ON RA. K-PAD TO BACK. STATES PAIN IS TOLERABLE AT THIS TIME. IV TO R FOOT, NO REDNESS OR SWELLING. BED IN LOW POSITION, CALL LIGHT WITHIN REACH. WILL CONTINUE TO MONITOR.
[2018-07-02 09:35] LABS: BASOPHIL % 0.2 % (0-2); PLATELET COUNT 157 x10^3mcL (130-400)
[2018-07-02 09:37] LABS: RED CELL DISTRIBUTION WIDTH 16.3 % (11.5-14.5)
[2018-07-02 10:07] VITALS: BP 109/55
--- NOTE | 2018-07-02 10:46 | NUR ---
Gus NOTES PATIENT REFUSED TO BED SEEN BY Gus, STATES WILL BE GOING HOME TODAY AND WOULD LIKE TO REST PRIOR TO D/C, RN MADE AWARE.
[2018-07-02 11:37] VITALS: BP 109/55
--- NOTE | 2018-07-02 12:36 | NUR ---
PT RESTING IN BED. C/O 09/22 R BACK PAIN, MEDICATED ORDERED. K-PAD TO BACK. IVF INFUSING TO R FOOT IV, NO REDNESS OR SWELLING. HOB ELEVATED. CALL LIGHT WITHIN REACH. WILL CONTINUE TO MONITOR.
[2018-07-02 12:40] VITALS: BP 89/57
--- NOTE | 2018-07-02 13:42 | NUR ---
PT DISCHARGED TO HOME IN NO ACUTE DISTRESS. AWAKE, ALERT, AND ORIENTED. VSS. TRANSPORTED VIA WHEELCHAIR. DISCHARGE EDUCATION PROVIDED, PT VERBALIZED UNDERSTANDING. INSTRUCTED PT TO FOLLOW UP WITH PCP. IV DC'D WITH CATHETER INTACT. TELE REMOVED. BELONGINGS WITH PT. JONAS GREENE ACCOMPANIED PT TO LOBBY.
[2018-07-03] MEDS ORDERED: AMLODIPINE BES2.5 M1 PO (18:33)
== END 2018-07-02 13:44 | disposition home or self-care (01) | DRG 552 ==
LOC: ED 02:08 → DU 05:49 → MU 05:49 → DU 08:56
PROVIDERS: Emergency Medicine; Family Medicine; ADMIT Internal Medicine
DX: M41.9 Scoliosis, unspecified (principal); R65.10 Systemic inflammatory response syndrome (SIRS) of non-infectious origin without acute organ dysfunction; G89.29 Other chronic pain; Z90.710 Acquired absence of both cervix and uterus; F41.9 Anxiety disorder, unspecified; G40.909 Epilepsy, unspecified, not intractable, without status epilepticus; Z80.1 Family history of malignant neoplasm of trachea, bronchus and lung; I10 Essential (primary) hypertension; R11.10 Vomiting, unspecified
CPT/HCPCS: 83880; J0360; J0780; J1885; J2270; J2405; J2550; J3490; J7030; Q0092

== ENCOUNTER 2018-07-03 16:44 | Inpatient (IN) | payer BC, OTHER ==
[~2018-07-03] VITALS: Ht 172.7 cm; Wt 72.6 kg
[2018-07-03 16:48] VITALS: Ht 172.7 cm; Wt 72.6 kg
[2018-07-03 17:27] LABS: CALCIUM 8.4 mg/dL (8.5-10.1); CARBON DIOXIDE 25.7 mmol/L (21-32); CHLORIDE SERUM 107 mmol/L (98-107); CREATININE SERUM 0.8 mg/dL (0.6-1.0); GFR1 > 60 mL/min; GLUCOSE SERUM 127 mg/dL (74-106); POTASSIUM SERUM 4.1 mmol/L (3.5-5.1); SODIUM SERUM 134 mmol/L (136-145)
[2018-07-03 17:28] LABS: BASOPHIL % 0.4 % (0-2); PLATELET COUNT 195 x10^3mcL (130-400)
[2018-07-03 17:32] LABS: ALKALINE PHOSPHATASE 90 U/L (46-116); ALT/SGPT 24 U/L (14-59); AST/SGOT 18 U/L (15-37); BILIRUBIN TOTAL 0.39 mg/dL (0.20-1.00)
[2018-07-03 17:33] LABS: ALBUMIN 3.2 g/dL (3.4-5.0); TOTAL PROTEIN, SERUM 6.1 g/dL (6.4-8.2)
[2018-07-03 17:35] LABS: RED CELL DISTRIBUTION WIDTH 16.2 % (11.5-14.5)
[2018-07-03] MEDS ORDERED: AMLODIPINE BES2.5 M1 PO (18:33)
[2018-07-03 20:49] LABS: CHOLESTEROL/HDL RATIO 3.1; MAGNESIUM 1.9 mg/dL (1.8-2.4)
[2018-07-03 20:57] LABS: T3 TOTAL 0.8 ng/mL
[2018-07-03 20:59] LABS: FREE T4 0.79 ng/dL (0.76-1.46); FREE THYROXINE INDEX 2.1 ug/dL (1.4-4.5); T4(THYROXINE) 5.5 ug/dL (4.7-13.3)
[2018-07-03 21:17] VITALS: BP 116/84
[2018-07-04] VITALS (13 sets, daily range): BP systolic 58–190; BP diastolic 20–124
[2018-07-04 19:16] LABS: UA SPECIFIC GRAVITY <=1.005 (1.005-1.035); microscopic required? YES; urine erythrocyte NEGATIVE (NEGATIVE)
[2018-07-04 19:25] LABS: AMPHETAMINE QUAL UR NONE DETECTED (See below)
[2018-07-05 05:55] VITALS: BP 121/70
[2018-07-05 06:38] LABS: CALCIUM 8.6 mg/dL (8.5-10.1); CARBON DIOXIDE 26.6 mmol/L (21-32); CREATININE SERUM 1.2 mg/dL (0.6-1.0)
[2018-07-05 07:00] LABS: BASOPHIL % 0.6 % (0-2); PLATELET COUNT 271 x10^3mcL (130-400)
[2018-07-05 07:03] LABS: RED CELL DISTRIBUTION WIDTH 14.8 % (11.5-14.5)
[2018-07-05 09:31] VITALS: BP 163/97
[2018-07-05 12:32] VITALS: BP 125/77
[2018-07-05 13:20] VITALS: BP 125/77
== END 2018-07-05 15:08 | disposition home or self-care (01) | DRG 607 ==
LOC: ED 16:44 → DU 20:16 → MU 07-05 12:14
PROVIDERS: Emergency Medicine; ADMIT Family Medicine
DX: L53.8 Other specified erythematous conditions (principal); E44.0 Moderate protein-calorie malnutrition; E87.1 Hypo-osmolality and hyponatremia; F41.9 Anxiety disorder, unspecified; G89.29 Other chronic pain; M54.9 Dorsalgia, unspecified; M41.9 Scoliosis, unspecified; G40.909 Epilepsy, unspecified, not intractable, without status epilepticus; G47.00 Insomnia, unspecified; E83.51 Hypocalcemia; E78.5 Hyperlipidemia, unspecified; D64.9 Anemia, unspecified; I10 Essential (primary) hypertension; Z68.23 Body mass index [BMI] 23.0-23.9, adult; Z90.710 Acquired absence of both cervix and uterus; Z80.1 Family history of malignant neoplasm of trachea, bronchus and lung; Z79.899 Other long term (current) drug therapy
CPT/HCPCS: 83880; 84439; J0360; J0461; J1885; J1940; J2270; J2405; J7030; Q0092

== ENCOUNTER 2018-08-02 02:20 | Inpatient (IN) | payer BC, OTHER ==
[~2018-08-02] VITALS: Ht 172.7 cm; Wt 61.7 kg
[~2018-08-02 02:20] MED LIST changes: +AMLODIPINE BES2.5 M1 PO
[2018-08-02 02:23] VITALS: Ht 172.7 cm; Wt 61.7 kg
--- NOTE | 2018-08-02 02:34 | NUR ---
PT STS THAT SHE HAS BEEN HAVING LOWER BACK PAIN AND VOMITING SINCE YESTERDAY AT 1500. PT HAS A HISTORY OF VOMITING AND BACK PAIN SINCE 2015 WHEN SHE HAD SURGERY. PT DENIES ANY TEMP/BODY CHILLS. NO ABDOMINAL PAIN. PT STS THAT SHE VOMITS WHEN THE PAIN IN HER BACK AND HIPS INCREASE. BILATERAL HIPS ARE ACHING. PT STS THAT EPISODES OF VOMITING COME AND GO. PT IS ALERT AND ORIENTED, SPEAKING IN CLEAR AND FULL SENTENCES. DR. DAVALOS AT BEDSIDE FOR MSE.
[2018-08-02 03:04] LABS: PLATELET COUNT 403 x10^3mcL (130-400); RED CELL DISTRIBUTION WIDTH 15.5 % (11.5-14.5)
[2018-08-02 03:13] LABS: MONOCYTE 2 % (0-7); SEGMENTED NEUTROPHILS 95 % (37-75)
[2018-08-02 03:14] LABS: CALCIUM 10.8 mg/dL (8.5-10.1); CARBON DIOXIDE 17.3 mmol/L (21-32); CREATININE SERUM 1.3 mg/dL (0.6-1.0); POTASSIUM SERUM 3.1 mmol/L (3.5-5.1)
[2018-08-02 03:16] LABS: PLATELET MORPHOLOGY PLATELETS NORMAL; rbc morphology (normal/abnorm) NORMAL (NORMAL)
[2018-08-02 03:20] LABS: ALBUMIN 4.9 g/dL (3.4-5.0); BILIRUBIN TOTAL 0.71 mg/dL (0.20-1.00)
[2018-08-02 03:21] LABS: TOTAL PROTEIN, SERUM 8.5 g/dL (6.4-8.2)
--- NOTE | 2018-08-02 03:38 | NUR ---
MEDICATED ORDERED. DR. DUARTE MADE AWARE OF ALL INCREASE HR AND BP. WILL CONTINUE TO MONITOR.
--- NOTE | 2018-08-02 03:41 | NUR ---
PT GIVEN PO POTASSIUM AND VOMITED BOTH PILLS. IV K ORDERED. EMESIS BAG HAS 100ML. PT PROVIDED NEW EMESIS BAG. WILL CONTINUE TO MONITOR.
--- NOTE | 2018-08-02 04:58 | NUR ---
REPORT GIVEN TO DAISHA MOSS, TO ASSUME CARE OF PT.
--- NOTE | 2018-08-02 05:20 | NUR ---
MEDICARED ORDERED PER EMAR.
--- NOTE | 2018-08-02 06:05 | NUR ---
PT RECEIVED FROM ED VIA GURNEY ACCOMPANIED BY ED NURSE. PT A/O X4, ABLE TO MAKE NEEDS KNOWN. TELE #25, DENIES ANY CP/PRESSURE. PULSES PALPABLE, NO EDEMA PRESENT. BREATHING IS EVEN AND UNLABORED, NO RESP DISTRESS NOTED. ABD SOFT AND NONDISTENDED, BOWEL TONES ACTIVE X4 QUAD, PT C/O N/V, EMESIS BAG PROVIDED, PT RECENTLY RECEIVED ZOFRAN IVP IN ED. VOIDS FREELY, BRP. GENERALIZED WEAKNESS, AMBULATORY, PT HAS SCOLIOSIS. SKIN IS WARM AND DRY, INTACT. PT C/O SEVERE BACK PAIN, PT RECENTLY MEDICATED WITH MORPHINE AND FENTANYL IN ED. PT IN NO ACUTE DISTRESS. ORIENTED PT TO ROOM AND CALL LIGHT. BED IN LOWEST SETTING, SIDE RAILS UP X2, CALL LIGHT WITHIN REACH. WILL CONT TO MONITOR.
[2018-08-02 06:22] LABS: MAGNESIUM 1.7 mg/dL (1.8-2.4); PHOSPHOROUS 2.8 mg/dL (2.5-4.9)
--- NOTE | 2018-08-02 06:33 | NUR ---
PT'S BP-191/132, HR-152. DR LOPEZ AT BEDSIDE. ONE TIME DOSE OF LABETALOL IVP GIVEN ORDERED. NO ACUTE DISTRESS NOTED. CALL LIGHT WITHIN REACH. WILL CONT TO MONITOR.
[2018-08-02 06:59] VITALS: BP 191/132
[2018-08-02 07:05] LABS: CHOLESTEROL/HDL RATIO 2.7
--- NOTE | 2018-08-02 07:50 | NUR ---
RECEIVED PATIENT RESTING IN BED. PATIENT APPEARED IN PAIN, WILL MEDICATE WITH MORPHINE PER PRTOCOL. TELE MONITOR IN PLACE. NO RESP. DISTRESS NOTED. PATIENT C/O SOME MILD NAUSEA, PREVIOUS NURSE MEDICATED PATIENT WITH ZOFRAN, WILL MONITOR PT. NS IV INFUSING TO LEFT ANKLE AT 100 ML/HR. NO S/S OF INFILTRATION. IV SITE PATENT.CALL LIGHT WITHIN REACH, BED IN LOW POSITION. WILL CONTINUE TO MONITOR FOR CHANGES.
--- NOTE | 2018-08-02 07:51 | NUR ---
PT IN NO ACUTE DISTRESS. CONTINUITY OF CARE ENDORSED TO ERI MOSS. ALL QUESTIONS AND CONCERNS ADDRESSED.
--- NOTE | 2018-08-02 08:08 | NUR ---
Dr Thompson made aware of Lactic Acid- 4.5, BP- 185/123 and T- 100.8. No new orders received. Attending nurse Danita centeno.
--- NOTE | 2018-08-02 08:15 | NUR ---
DR KELLY AWARE PATIENT LACTIC ACID WAS 4.5. NO FURTHER ORDERS AT THIS TIME.
[2018-08-02 09:26] VITALS: BP 185/123
--- NOTE | 2018-08-02 09:30 | NUR ---
PATIENT BP REMAINED ELEVATED 180/[address] KE[address] A[address] KELLY AND WILL PLACE NEW ORDERS, WILL FOLLOW UP.
[2018-08-02 10:49] VITALS: BP 185/123
--- NOTE | 2018-08-02 11:17 | NUR ---
PATIENT C/O 11/23 TO BACK, MEDICATED PATIENT WITH MORPHINE PER PROTOCOL (SEE EMAR). REPOSITIONED PATIENT AND PROVIDED HEATING PACK FOR COMFORT, WILL CONTINUE TO MONITOR FOR CHANGES, CALL LIGHT WITHIN REACH. BED IN LOW POSITION FOR SAFETY PRECAUTION.
--- NOTE | 2018-08-02 11:41 | NUR ---
PATIENT WENT DOWN FOR CT.
[2018-08-02 12:41] VITALS: BP 174/98
--- NOTE | 2018-08-02 14:10 | NUR ---
PATIENT C/O PAIN 11/23 TO LOWER BACK, MEDICATED PATIENT WITH MORPHINE PER PROTOCOL (SEE EMAR), REPOSITION FOR COMFORT. EDUCATED PATIENT ON PAIN MANAGEMENT AND PREVENTING BREAK THROUGH PAIN. PATIENT VERBALIZES UNDERSTANDING. CALL LIGHT WITHIN REACH, BED IN LOW POSITION. WILL CONTINUE TO MONITOR PATIENT.
[2018-08-02 14:18] LABS: BASOPHIL % 0.2 % (0-2); PLATELET COUNT 317 x10^3mcL (130-400); RED CELL DISTRIBUTION WIDTH 15.5 % (11.5-14.5)
[2018-08-02 18:06] VITALS: BP 99/69
--- NOTE | 2018-08-02 18:59 | NUR ---
PATIENT C/O PAIN TO LOWER BACK, MEDICATED PATIENT WITH MORPHINE PER PROTOCOL (SEE EMAR). REPOSITION PATIENT FOR COMFORT. PATIENT IS STABLE, NO ACUTE CHANGES THROUGH OUT SHIFT. NS IV INFUSING TO LEFT ANKLE AT 100ML/HR, IV SITE CDI, NO S/S OF INFILTRATION. WILL ENDORSE REPORT TO NIGHT RN.
--- NOTE | 2018-08-02 19:36 | NUR ---
RECEIVED PATIENT IN BED AWAKE CONFUSED AND DISORIENTED WITH NO SIGN OF ACUTE DISTRESS. BREATHING EASY AND NONLABOR SATTING AT 97% RA. TELE# 13 AFIB/A FLUTTER ON MONITOR, NO INDICATION OF CHEST DISCOMFORT NOTED. IV TO LW INTACT AND INFUSING WELL WITH NO SIGN OF INFILTRATION. FAMILY MEMBERS AT BEDSIDE. WILL CONTINUE TO MONITOR. BED ALARM ON.
--- NOTE | 2018-08-02 19:44 | NUR ---
RECEIVED PATIENT IN BED AWAKE, ALERT AND ORIENTED WITH NO SIGN OF DISTRESS, BREATHING EASY AND NONLABOR SATTING AT 98% RA. TELE#25 SR/ST ON MONITOR. DENIES CHESTPAIN. ABDOMEN ROUND AND NONTENDER WITH ACTIVE BOWEL SOUNDS. PATIENT MEDICATED EARLIER FOR BACKPAIN BY AM SHIFT. IV TO LEFT ANKLE INTACT AND INFUSING WELL. WILL CONTINUE TO MONITOR.
--- NOTE | 2018-08-02 20:05 | NUR ---
C/O NAUSEA AND VOMITING ZOFRAN 4MG IVP GIVEN PRESCRIBED. WILL CONTINUE TO MONITOR.
[2018-08-02 20:54] LABS: UA SPECIFIC GRAVITY 1.015 (1.005-1.035); microscopic required? YES; urine erythrocyte TRACE (NEGATIVE)
--- NOTE | 2018-08-02 21:50 | NUR ---
IV TO LEFT ANKLE LEAKING REINSERTED NEW IV TO LEFT HAND INTACT AND INFUSING WELL.
--- NOTE | 2018-08-02 22:01 | NUR ---
C/O BACKPAIN AT SCALE OF 8/10 PER PATIENT MORPHINE 3MG IVP GIVEN PRESCRIBED. WILL CONTINUE TO MONITOR.
[2018-08-02 23:42] VITALS: BP 95/61
--- NOTE | 2018-08-02 23:44 | NUR ---
RELIEF NOTED PER PATIENT AFTER PAIN MEDS WAS GIVEN.
--- NOTE | 2018-08-03 01:58 | NUR ---
AWAKE C/O BACKPAIN PERCOCET PO GIVEN PRESCRIBED. WILL CONTINUE TO MONITOR.
--- NOTE | 2018-08-03 03:12 | NUR ---
STILL C/O BACKPAIN, MORPHINE 3MG IVP GIVEN PRESCRIBED. WILL CONTINUE TO MONITOR.
--- NOTE | 2018-08-03 05:06 | NUR ---
AWAKE MOST OF THE TIME C/O NAUSEA AND BACKPAIN MEDICATED X3 PRESCRIBED. CHECKED AT INTERVALS FOR NEEDS AND SAFETY. ALL NEEDS ATTENDED, KPAD TO BACK APPLIED.
[2018-08-03 05:43] VITALS: BP 128/82
[2018-08-03 07:18] LABS: PLATELET COUNT 264 x10^3mcL (130-400)
[2018-08-03 07:35] LABS: CALCIUM 9.3 mg/dL (8.5-10.1); CARBON DIOXIDE 22.6 mmol/L (21-32); CHLORIDE SERUM 103 mmol/L (98-107); CREATININE SERUM 0.7 mg/dL (0.6-1.0); GFR1 > 60 mL/min; GLUCOSE SERUM 125 mg/dL (74-106); MAGNESIUM 1.9 mg/dL (1.8-2.4); PHOSPHOROUS 3.1 mg/dL (2.5-4.9); POTASSIUM SERUM 3.6 mmol/L (3.5-5.1); SODIUM SERUM 129 mmol/L (136-145)
--- NOTE | 2018-08-03 07:35 | NUR ---
RECEIVED PT IN NO ACUTE DISTRESS. SLEEPING BUT EASILY AROUSABLE. BREATHING EVEN AND UNLABORED ON RA. NO PAIN NOTED. IVF INFUSING, NO REDNESS OR SWELLING NOTED. BED IN LOW POSITION, CALL LIGHT WITHIN REACH. WILL CONTINUE TO MONITOR.
[2018-08-03 08:29] LABS: RED CELL DISTRIBUTION WIDTH 15.9 % (11.5-14.5)
[2018-08-03 09:40] VITALS: BP 118/66
[2018-08-03 12:50] VITALS: BP 156/101
--- NOTE | 2018-08-03 13:23 | NUR ---
DR. KELLY AWARE OF WBC 18.6. NO NEW ORDERS. WILL CONTINUE TO MONITOR.
[2018-08-03 13:25] LABS: BAND NEUTROPHIL 1 % (0-10); BASOPHIL 0 % (0-2); MONOCYTE 2 % (0-7); SEGMENTED NEUTROPHILS 95 % (37-75)
[2018-08-03 13:26] LABS: PLATELET MORPHOLOGY PLATELETS INCREASED; rbc morphology (normal/abnorm) ABNORMAL (NORMAL)
--- NOTE | 2018-08-03 15:06 | NUR ---
PT IN NO ACUTE DISTRESS. SLEEPING BUT EASILY AROUSABLE. NO S/S PAIN NOTED. IVF INFUSING, NO REDNESS OR SWELLING. CALL LIGHT WITHIN REACH. WILL CONTINUE TO MONITOR.
[2018-08-03 16:50] VITALS: BP 134/98
--- NOTE | 2018-08-03 18:39 | NUR ---
PT RESTING IN BED WATCHING TV WHILE LEANING FORWARD. INSTRUCTED PT REGARDING PROPER POSITIONING, PT REFUSED TO REPOSITION. WEARING HIP BRACE AT THIS TIME. MEDICATED FOR LLE PAIN ORDERED. IVF INFUSING, NO REDNESS OR SWELLING. ON AIR MATTRESS. BED IN LOW POSITION, CALL LIGHT WITHIN REACH. WILL ENDORSE TO ONCOMING SHIFT.
--- NOTE | 2018-08-03 18:41 | NUR ---
PT SITTING UP IN BED EATING DINNER. NO ACUTE DISTRESS. C/O MILD NAUSEA BUT TOLERABLE. K-PAD TO BACK. IVF INFUSING, NO REDNESS OR SWELLING. BED IN LOW POSITION, CALL LIGHT WITHIN REACH. WILL ENDORSE TO ONCOMING SHIFT.
--- NOTE | 2018-08-03 19:45 | NUR ---
RECEIVED PATIENT IN BED AWAKE, ALERT AND ORIENTED DENIES BACK PAIN AT THIS TIME. PATIENT MEDICATED EARLIER FOR PAIN BY AM SHIFT RN. BREATHING EASYA ND NONLABOR SATTING AT 98% RA. K PAD TO BACK IN PLACE. PATIENT TRANSFERRED TO MED SURG PATIENT. IV TO LH INTACT AND INFUSINGW ELL. WILL CONTINUE TO MONITOR. CALL LIGHT WITHIN REACH.
[2018-08-03 21:04] VITALS: BP 109/78
--- NOTE | 2018-08-03 21:24 | NUR ---
V/O BACKPAIN AT SCALE OF 8/10 PER PATIENT MEDICATED WITH MORPHINE 2MG IVP PRESCRIBED. WILL CONTINUE TO MONITOR.
--- NOTE | 2018-08-03 23:28 | NUR ---
AWAKE WATCHING TELEVISION, NO INDICATION OF BACKPAIN THIS TIME.
--- NOTE | 2018-08-04 04:42 | NUR ---
AWAKE C/O BACKPAIN AT SCALE OF 8/10 PER PATIENT. MEDICATED WITH MORPHINE 3MG IV PRESCRIBED. WILL CONTINUE TO MONITOR.
--- NOTE | 2018-08-04 05:15 | NUR ---
AWAKE MOST OF THE TIME C/O BACKPAIN X3 THE NETIRE SHIFT AND MEDICATED PRESCRIBED. ALL NEEDS ATTENDED. K PAD TO BACK INPLACE.
[2018-08-04 06:16] VITALS: BP 125/91
--- NOTE | 2018-08-04 07:10 | NUR ---
RECEIVED PATIENT AWAKE/ALERT IN BED NO ACUTE DISTRESS NOTED. PT ASKING FOR PAIN MED STATED 10/23 TO BACK, NO TELE NOTED. IV TO LH INTACT AND INFUSING WELL, DECREASE RATE TO 30ML/HR ORDERED. CALL LIGHT WITHIN REACH. INFORM PATIENT WILL BE BACK TO MEDICATE PATIENT.
--- NOTE | 2018-08-04 07:51 | NUR ---
MEDICATE PATIENT FOR 8/10 BACK PAIN WITH MORPHINE 3MG IVP, KITCHEN BROUGHT REGULAR DIET TRAY TO PATIENT, NEEDS MET. CALL LIGHT WITHIN REACH.
[2018-08-04 08:56] VITALS: BP 94/43
--- NOTE | 2018-08-04 09:17 | NUR ---
PATIENT RESTING IN BED WITH EYES CLOSED, AROUSABLE. PO MEDS ADMINISTERED. HELD NORVASC FOR BP 94/43. PATIENT TOLERATED REGULAR DIET AND MEDS WELL, NO COMPLAIN. CONT TO MONITOR.
--- NOTE | 2018-08-04 11:04 | NUR ---
PATIENT RESTING IN BED WATCHING TV, NO DISTRESS NOTED. ASKING FOR PAIN SHOT INFORM PATIENT DOCTOR DISCONTINUE MORPHINE. PEROCET 10/325MG PO GIVEN FOR C/O 8/10 BACK PAIN. CONT TO MONITOR.
[2018-08-04] MEDS ORDERED: APAP/OXYCODONE1 TA4 PO (12:49)
--- NOTE | 2018-08-04 13:14 | NUR ---
PROTONIX 40MG PO AND TORADOL 30MG IVP ADMINISTERED PER DR. KELLY ORDER ONCE TIME DOSE PRIOR DISCHARGE PATIENT HOME, PATIENT REPORT PAIN IS 8/10 TO BACK. INFORM PATIENT WILL BE BACK TO ASSESS AND GIVE DISCHARGE INSTRUCTION. CALL LIGHT WITHIN REACH.
[2018-08-04 13:40] VITALS: BP 114/52
--- NOTE | 2018-08-04 14:00 | NUR ---
PATIENT RESTING IN BED NO DISTRESS NOTED, REPORT PAIN IS BETTER, 08/23. DISCHARGE INSTRUCTION AND PRESCRIPTION FOR PEROCET GIVEN TO PATIENT. INSTRUCT TO F/U WITH PCP SCHEDULE ON 08/13/18 AT 10:45 PATIENT VERBAL UNDERSTAND. IV DC'D W/ CATHETER INTACT; NO ERYTHEMA NOTED. GAUZES APPLIED TO SITE. PER PATIENT HER RIDE WILL BE HERE IN 30 MIN. INSTRUCT TO USE CALL LIGHT FOR ASSISTANCE TO WHEEL OUT.
== END 2018-08-04 14:29 | disposition home or self-care (01) | DRG 552 ==
LOC: ED 02:20 → MU 04:28 → DU 04:28 → EDBEDREQSVC 04:39 → DU 06:02 → MU 08-03 12:00
PROVIDERS: Emergency Medicine; ADMIT Internal Medicine
DX: M54.9 Dorsalgia, unspecified (principal); R65.10 Systemic inflammatory response syndrome (SIRS) of non-infectious origin without acute organ dysfunction; I10 Essential (primary) hypertension; E78.5 Hyperlipidemia, unspecified; Z90.710 Acquired absence of both cervix and uterus; G40.909 Epilepsy, unspecified, not intractable, without status epilepticus; F41.9 Anxiety disorder, unspecified; Z80.1 Family history of malignant neoplasm of trachea, bronchus and lung; R11.2 Nausea with vomiting, unspecified
CPT/HCPCS: 82962; J0696; J1100; J1885; J2270; J2405; J2550; J3010; J3480; J3490; J7030; Q0092

== ENCOUNTER 2019-02-14 04:16 | Inpatient (IN) | payer BC, OTHER ==
[2019-02-14] VITALS (7 sets, daily range): BP systolic 178–227; BP diastolic 94–136; Ht 172.7 cm; Wt 64.9 kg
[~2019-02-14] VITALS: Ht 172.7 cm; Wt 64.9 kg
[~2019-02-14 04:16] MED LIST changes: +APAP/OXYCODONE1 TA4 PO
[2019-02-14 04:55] LABS: BASOPHIL % 0.5 % (0-2); PLATELET COUNT 214 x10^3mcL (130-400); RED CELL DISTRIBUTION WIDTH 14.5 % (11.5-14.5)
[2019-02-14 05:02] LABS: CALCIUM 8.5 mg/dL (8.5-10.1); CARBON DIOXIDE 20.2 mmol/L (21-32); CHLORIDE SERUM 102 mmol/L (98-107); CREATININE SERUM 0.9 mg/dL (0.6-1.0); GFR1 > 60 mL/min; GLUCOSE SERUM 116 mg/dL (74-106); POTASSIUM SERUM 3.1 mmol/L (3.5-5.1); SODIUM SERUM 136 mmol/L (136-145)
[2019-02-14 05:07] LABS: ALBUMIN 3.8 g/dL (3.4-5.0); ALKALINE PHOSPHATASE 92 U/L (46-116); ALT/SGPT 18 U/L (14-59); AST/SGOT 10 U/L (15-37); LIPASE 53 IU/L (73-393); TOTAL PROTEIN, SERUM 6.8 g/dL (6.4-8.2)
[2019-02-14] MEDS ORDERED: MORPHINE SULFAT30 M6 PO (07:39)
[2019-02-14] MEDS ORDERED: LISINOPRIL2.5 MG (07:40)
[2019-02-14 09:46] LABS: UA SPECIFIC GRAVITY <=1.005 (1.005-1.035); microscopic required? YES; urine erythrocyte NEGATIVE (NEGATIVE)
[2019-02-14 13:04] LABS: AMPHETAMINE QUAL UR NONE DETECTED (See below)
[2019-02-15] VITALS (11 sets, daily range): BP systolic 90–201; BP diastolic 55–117
[2019-02-15 06:30] LABS: BASOPHIL % 0.4 % (0-2); PLATELET COUNT 281 x10^3mcL (130-400)
[2019-02-15 06:40] LABS: RED CELL DISTRIBUTION WIDTH 15.1 % (11.5-14.5)
[2019-02-15 06:47] LABS: CARBON DIOXIDE 20.3 mmol/L (21-32); CHLORIDE SERUM 105 mmol/L (98-107); CREATININE SERUM 0.9 mg/dL (0.6-1.0); GFR1 > 60 mL/min; GLUCOSE SERUM 135 mg/dL (74-106); POTASSIUM SERUM 3.7 mmol/L (3.5-5.1); SODIUM SERUM 141 mmol/L (136-145)
[2019-02-16] VITALS (8 sets, daily range): BP systolic 90–152; BP diastolic 53–102
[2019-02-16 06:23] LABS: BASOPHIL % 0.4 % (0-2); PLATELET COUNT 229 x10^3mcL (130-400)
[2019-02-16 06:28] LABS: CALCIUM 8.7 mg/dL (8.5-10.1); CHLORIDE SERUM 104 mmol/L (98-107); CREATININE SERUM 0.8 mg/dL (0.6-1.0); GFR1 > 60 mL/min; GLUCOSE SERUM 87 mg/dL (74-106); MAGNESIUM 2.1 mg/dL (1.8-2.4); POTASSIUM SERUM 4.6 mmol/L (3.5-5.1); SODIUM SERUM 136 mmol/L (136-145)
[2019-02-16 06:51] LABS: RED CELL DISTRIBUTION WIDTH 15.1 % (11.5-14.5)
[2019-02-17 05:51] VITALS: BP 139/69
[2019-02-17 05:59] LABS: BASOPHIL % 0.2 % (0-2); PLATELET COUNT 276 x10^3mcL (130-400)
[2019-02-17 06:00] LABS: RED CELL DISTRIBUTION WIDTH 15.6 % (11.5-14.5)
[2019-02-17 06:37] LABS: CALCIUM 8.2 mg/dL (8.5-10.1); CARBON DIOXIDE 28.4 mmol/L (21-32); CHLORIDE SERUM 103 mmol/L (98-107); CREATININE SERUM 0.9 mg/dL (0.6-1.0); GFR1 > 60 mL/min; GLUCOSE SERUM 94 mg/dL (74-106); POTASSIUM SERUM 4.5 mmol/L (3.5-5.1); SODIUM SERUM 139 mmol/L (136-145)
[2019-02-17 07:52] VITALS: BP 148/98
[2019-02-17 11:35] VITALS: BP 150/100
[2019-02-17 15:27] VITALS: BP 150/97
[2019-02-17 20:10] VITALS: BP 149/104
[2019-02-18 04:45] VITALS: BP 153/105
[2019-02-18 06:24] VITALS: BP 148/96
[2019-02-18 06:29] LABS: CALCIUM 9.3 mg/dL (8.5-10.1); CARBON DIOXIDE 29.5 mmol/L (21-32); CHLORIDE SERUM 99 mmol/L (98-107); CREATININE SERUM 0.9 mg/dL (0.6-1.0); GFR1 > 60 mL/min; GLUCOSE SERUM 135 mg/dL (74-106); POTASSIUM SERUM 4.2 mmol/L (3.5-5.1); SODIUM SERUM 137 mmol/L (136-145)
[2019-02-18 07:36] LABS: BASOPHIL % 0.1 % (0-2); PLATELET COUNT 365 x10^3mcL (130-400)
[2019-02-18 07:38] VITALS: BP 159/104
[2019-02-18 07:45] LABS: RED CELL DISTRIBUTION WIDTH 15.5 % (11.5-14.5)
[2019-02-18 12:01] VITALS: BP 138/88
[2019-02-18 16:50] VITALS: BP 155/104
[2019-02-18 21:00] VITALS: BP 147/98
[2019-02-19 04:27] VITALS: BP 126/89
[2019-02-19 09:16] VITALS: BP 147/100
[2019-02-19 09:35] VITALS: BP 142/76
[2019-02-19] MEDS ORDERED: ELA25 PO (09:35)
[2019-02-19] MEDS ORDERED: LAC30L PO (09:35)
[2019-02-19] MEDS ORDERED: LOP50 PO (09:35)
[2019-02-19] MEDS ORDERED: AMITIZA24 MC1 PO (09:35)
[2019-02-19] MEDS ORDERED: BUSPIRONE HCL10 MG PO (09:35)
== END 2019-02-19 11:25 | disposition home or self-care (01) | DRG 392 ==
LOC: ED 04:16 → MU 07:35 → DU 07:35 → MU 02-18 09:59
PROVIDERS: Emergency Medicine; Internal Medicine; Internal Medicine Gastroenterology; ADMIT Internal Medicine
PROC: 0DJD8ZZ Inspection of Lower Intestinal Tract, Via Natural or Artificial Opening Endoscopic (ICD-10-PCS; principal; 2019-02-18 11:30)
DX: K59.03 Drug induced constipation (principal); M54.9 Dorsalgia, unspecified; F41.9 Anxiety disorder, unspecified; T40.695A Adverse effect of other narcotics, initial encounter; G89.4 Chronic pain syndrome; Z56.0 Unemployment, unspecified; Z90.710 Acquired absence of both cervix and uterus; Z80.1 Family history of malignant neoplasm of trachea, bronchus and lung; Y92.89 Other specified places as the place of occurrence of the external cause; Z79.899 Other long term (current) drug therapy
CPT/HCPCS: 45378; C9113; G0378; J0696; J0780; J1170; J1200; J1610; J1885; J1940; J2060; J2250; J2270; J2310; J2405; J2765; J3010; J3480; J3490; J7030; Q0092; Q9967